=== PATIENT | female | born 1960 | race Caucasian/White ===

== ENCOUNTER 2018-01-10 05:29 | Day surgery (SDC) | payer OTHER ==
[2018-01-10] MEDS ORDERED: HYDROmorphONE 1 MG/5 ML IV SYRINGE IV (06:30)
[2018-01-10] MEDS ORDERED: OXYCODONE/ACETAMINOPHEN (5/325) TAB PO (06:30)
[2018-01-10] MEDS ORDERED: FENTAnyl 50 MCG/ML VIAL (06:30)
[2018-01-10] MEDS ORDERED: ONDANSETRON 4 MG INJ (06:30)
[2018-01-10] MEDS ORDERED: MEPERIDINE 25 MG INJ IV (06:30)
[2018-01-10] MEDS ORDERED: EPHEDrine SULFATE 50 MG/5 ML SYG IV (06:30)
[2018-01-10] MEDS ORDERED: GLYCOPYRROLATE 0.4 MG INJ (06:30)
[2018-01-10] MEDS ORDERED: MIDAZOLAM 1 MG/ML 2 ML INJ (06:30)
[2018-01-10] MEDS ORDERED: ROCURONIUM 50 MG INJ (06:30)
[2018-01-10] MEDS ORDERED: DIPHENHYDRAMINE 50 MG INJ IV (06:30)
[2018-01-10] MEDS ORDERED: hydrALAzine 20 MG INJ IV (06:30)
[2018-01-10] MEDS ORDERED: FENTAnyl 50 MCG/ML VIAL IV (06:30)
[2018-01-10] MEDS ORDERED: NEOSTIGMINE 3 MG/3 ML SYRINGE (06:30)
[2018-01-10] MEDS ORDERED: LABETALOL HCL 20MG INJ IV (06:30)
[2018-01-10] MEDS ORDERED: PROPOFOL 20 ML (06:30)
[2018-01-10] MEDS ORDERED: ATROPINE 1 MG/10 ML SYRINGE IV (06:30)
[2018-01-10] MEDS ORDERED: MIDAZOLAM 1 MG/ML 2 ML INJ IV (06:30)
[2018-01-10] MEDS ORDERED: morphine (1 MG/ML) 10ML SYRINGE IV ×3 (06:30)
[2018-01-10] MEDS ORDERED: DEXAMETHASONE 4 MG/ML 1 ML INJ (06:30)
[2018-01-10] MEDS ORDERED: LIDOCAINE 2% (SDV) 5 ML INJ (06:30)
[2018-01-10] MEDS ORDERED: SUGAMMADEX SODIUM 200 MG/2 ML VIAL IV (06:31)
[2018-01-10] MEDS ORDERED: ROPIVACAINE 0.5 % 30 ML VIAL (06:38)
[2018-01-10] MEDS ORDERED: CEFAZOLIN 1 GM INJ ×2 (08:32→11:42)
[2018-01-10] MEDS: SODIUM CL BACTERIOSTATIC 30 ML INJ (08:34)
[2018-01-10] MEDS: morphine SULFATE/PF (10 MG/10 ML) INJ (08:38)
[2018-01-10] MEDS: EPINEPHrine 0.1 MG/ML SYG (08:39)
[2018-01-10] MEDS ORDERED: LABETALOL HCL 20MG INJ (09:08)
[2018-01-10] MEDS ORDERED: hydrALAzine 20 MG INJ (09:08)
[2018-01-10] MEDS ORDERED: EPINEPHrine 0.1 MG/ML SYG (09:14)
[2018-01-10] MEDS: HYDROmorphONE 1 MG/5 ML IV SYRINGE IV ×3 (10:37→11:00)
[2018-01-10] MEDS: ONDANSETRON 4 MG INJ IV (10:39)
[2018-01-10] MEDS: FENTAnyl 50 MCG/ML VIAL IV (11:02)
[2018-01-10] MEDS ORDERED: SUCCINYLCHOLINE CHLORIDE 100 MG/5 ML SYG IV (11:41)
[2018-01-10] MEDS: OXYCODONE/ACETAMINOPHEN (5/325) TAB PO (11:51)
== END 2018-01-10 12:35 | disposition home or self-care (01) ==
LOC: SDS 05:29
DX: S43.432A Superior glenoid labrum lesion of left shoulder, initial encounter (principal); M75.102 Unspecified rotator cuff tear or rupture of left shoulder, not specified as traumatic; X58.XXXA Exposure to other specified factors, initial encounter; Y93.89 Activity, other specified; Y92.89 Other specified places as the place of occurrence of the external cause; Y99.8 Other external cause status
CPT/HCPCS: 29806